=== PATIENT | male | born 1985 | race Caucasian/White ===

== ENCOUNTER 2017-04-08 23:10 | Emergency (ER) | payer OTHER ==
[~2017-04-08] VITALS: Ht 182.9 cm; Wt 72.6 kg
[2017-04-08 23:14] VITALS: BP 141/80
--- NOTE | 2017-04-08 23:30 | NUR ---
AMBULATED TO ER BED 11
--- NOTE | 2017-04-08 23:35 | NUR ---
31/M C/O 6/10 PAIN TO ABSCESS TO RT SIDE OF NECK X 2 DAYS. PT STATES "IT STARTED INGROWN HAIR AND GOT INFECTED". ABSCESS NOTED WITH PURULENT DRAINAGE, EDEMA AND REDNESS LOCALIZED TO SITE. PT REPORTS HE TOOK IBUPROFEN AT 1800. DENIES FEVER/CHILLS, DENIES N/V/D. PMH: TRIGEMINAL NEURALGIA
[2017-04-09] MEDS ORDERED: LIDOCAINE 1% ***ER ONLY *** 10 MG/ML VIAL INJ ONE (00:25)
--- NOTE | 2017-04-09 00:30 | NUR ---
ER MD HURLEY PERFORMING I&D AT BEDSIDE
[2017-04-09 00:45] VITALS: BP 127/72
--- NOTE | 2017-04-09 00:45 | NUR ---
Patient discharged with v/s stable. Written and verbal after care instructions given and explained. Patient alert, oriented and verbalized understanding of instructions. Ambulatory with steady gait. All questions addressed prior to discharge. ID band removed. Patient advised to follow up with PMD. Rx of CLINDAMYCIN HCL 300MG 1 CAPPO 4 TIMES A DAY X 10 DAYS, TRAMADOL HCL 50MG ONE TAB EVERY 6 HOURS PO PRN given. Patient educated on indication of medication including possible reaction and side effects. Opportunity to ask questions provided and answered.
== END 2017-04-09 00:45 | disposition home or self-care (01) ==
LOC: MED 23:10
DX: L02.11 Cutaneous abscess of neck (principal)
CPT/HCPCS: 10060; 99283; J2001

== ENCOUNTER 2017-06-21 02:35 | Emergency (ER) | payer OTHER ==
[~2017-06-21] VITALS: Ht 182.9 cm; Wt 78.9 kg
[2017-06-21 02:45] VITALS: BP 120/93
--- NOTE | 2017-06-21 02:46 | NUR ---
PT TAKEN TO OF
[2017-06-21 02:48] VITALS: BP 120/93
--- NOTE | 2017-06-21 02:50 | NUR ---
PATIENT PRESENTS TO ED WITH C/O LT RIB PAIN X 2WEEKS S/P MEC FALL 10 FEET ON TO WALL-NO LOC/KO, PAIN 5/10 PT DENIES N/V/D; SKIN IS PINK/WARM/DRY; AAOX4 WITH EVEN AND STEADY GAIT; LUNGS CLEAR BL; HR EVEN AND REGULAR; PT DENIES ANY FEVER, CP, SOB, OR COUGH AT THIS TIME; PATIENT STATES PAIN OF 5/10 AT THIS TIME; VSS; PATIENT POSITIONED FOR COMFORT; HOB ELEVATED; BEDRAILS UP X2; BED DOWN. ER MD MADE AWARE OF PT STATUS.
--- NOTE | 2017-06-21 03:11 | NUR ---
PT RETURN FROM CT
--- NOTE | 2017-06-21 04:14 | NUR ---
Patient discharged with v/s stable. Written and verbal after care instructions given and explained. Patient verbalized understanding. Ambulatory with steady gait. All questions addressed prior to discharge. Advised to follow up with PMD. DISCHARGED BY DR MAO
== END 2017-06-21 04:14 | disposition home or self-care (01) ==
LOC: MED 02:35
DX: S20.212A Contusion of left front wall of thorax, initial encounter (principal); W18.30XA Fall on same level, unspecified, initial encounter; Y93.89 Activity, other specified; Y92.89 Other specified places as the place of occurrence of the external cause; Y99.8 Other external cause status
CPT/HCPCS: 71250; 99284

== ENCOUNTER 2017-08-07 21:27 | Emergency (ER) | payer OTHER ==
[~2017-08-07] VITALS: Ht 185.4 cm; Wt 78.0 kg
[2017-08-07 21:34] VITALS: BP 133/94
--- NOTE | 2017-08-08 00:38 | NUR ---
PT AMBULATED TO BED 11
--- NOTE | 2017-08-08 00:55 | NUR ---
PATIENT PRESENTS TO ED W/C/O ABCESS TO R MANDIBLE X 3 DAYS. NO MED HX . PT DENIES N/V/D; SKIN IS PINK/WARM/DRY; AAOX4 WITH EVEN AND STEADY GAIT; LUNGS CLEAR BL; HR EVEN AND REGULAR; PT DENIES ANY FEVER, CP, SOB, OR COUGH AT THIS TIME; PATIENT STATES PAIN OF 10/10 AT THIS TIME; VSS; PATIENT POSITIONED FOR COMFORT; HOB ELEVATED; BEDRAILS UP X2; BED DOWN. ER MD MADE AWARE OF PT STATUS.
--- NOTE | 2017-08-08 01:10 | NUR ---
Patient being evaluated by physician at bedside.
[2017-08-08 02:30] VITALS: BP 128/75
--- NOTE | 2017-08-08 02:30 | NUR ---
Patient discharged with v/s stable. Written and verbal after care instructions given and explained. Patient alert, oriented and verbalized understanding of instructions. Ambulatory with steady gait. All questions addressed prior to discharge. ID band removed. Patient advised to follow up with PMD. Rx of BACTRIM, NAPROSYN, NORCO given. Patient educated on indication of medication including possible reaction and side effects. Opportunity to ask questions provided and answered.
== END 2017-08-08 02:30 | disposition home or self-care (01) ==
LOC: MED 21:27
DX: L03.211 Cellulitis of face (principal)
CPT/HCPCS: 99284

== ENCOUNTER 2018-11-13 01:40 | Emergency (ER) | payer SELFPAY ==
[~2018-11-13] VITALS: Ht 172.7 cm; Wt 81.6 kg
[2018-11-13 01:47] VITALS: BP 114/66
--- NOTE | 2018-11-13 01:47 | NUR ---
33 Y/O MALE PRESENTS TO ED WITH C/O BILAT LOOT EDEMA WITH BILAT FLANK PAIN ON 11/10/18. NO EDEMA OR FLANK PAIN AT THIS TIME. PT STATES DISCOMFORT OF ANKLES OF 2/10 AT THIS TIME. VSS. ER MD AWARE. CONTINUE TO MONITOR.
--- NOTE | 2018-11-13 01:47 | NUR ---
PT TAKEN TO BED 3
--- NOTE | 2018-11-13 01:52 | NUR ---
Dr. Bruner examining patient.
[2018-11-13 02:10] LABS: BASOPHILS % (AUTO) 0.2 % (0.0-2.0); EOSINOPHILS # (AUTO) 0.1 K/uL (0-0.4); EOSINOPHILS % (AUTO) 1.5 % (0.0-4.0); HEMATOCRIT 38.7 % (36-52); HEMOGLOBIN 13.5 g/dL (12.0-18.0); LYMPHOCYTES # (AUTO) 1.2 K/uL (2.0-11.5); LYMPHOCYTES % (AUTO) 26.9 % (20.5-51.1); MEAN CORPUSCULAR HEMOGLOBIN 30 pg (27-31); MEAN CORPUSCULAR HGB CONC 35 g/dL (33-37); MEAN CORPUSCULAR VOLUME 87.3 fL (80-94); MONOCYTES # (AUTO) 0.3 K/uL (0.8-1.0); MONOCYTES % (AUTO) 6.1 % (1.7-9.3); NEUTROPHILS # (AUTO) 2.8 K/uL (1.8-7.7); NEUTROPHILS % (AUTO) 65.3 % (42.2-75.2); PLATELET COUNT (AUTO) 115 K/uL (140-450); RED BLOOD CELL COUNT(AUTO) 4.43 MIL/uL (4.20-6.10); RED CELL DISTRIBUTION WIDTH 12.9 % (11.6-13.7); WHITE BLOOD COUNT (AUTO) 4.4 K/uL (4.8-10.8)
[2018-11-13 02:20] LABS: ANION GAP 12.7 (8-16); CARBON DIOXIDE 27.1 mmol/L (21-32); CREATININE 1.2 mg/dL (0.7-1.3); POTASSIUM 3.8 mmol/L (3.5-5.1)
[2018-11-13 02:26] LABS: ALBUMIN 4.1 g/dL (3.4-5.0); TOTAL BILIRUBIN 0.6 mg/dL (0.0-1.0)
[2018-11-13 03:52] VITALS: BP 98/60
--- NOTE | 2018-11-13 03:53 | NUR ---
DISCHARGE PAPERS GIVEN TO PT. NO EDEMA. NO FLANK PAIN. ALL VSS. INSTRUCTED TO F/U WITH PCP AND WHEN TO RETURN TO ER. PT VERBALLIZED UNDERSTANDING OF DC INSTRUCTIONS. ALL QUESTIONS ANSWERED.
== END 2018-11-13 03:53 | disposition home or self-care (01) ==
LOC: MED 01:40
DX: R22.43 Localized swelling, mass and lump, lower limb, bilateral (principal); M79.661 Pain in right lower leg; M79.662 Pain in left lower leg
CPT/HCPCS: 36415; 80053; 85025; 93970; 99284; Q0092

== ENCOUNTER 2019-01-14 16:37 | Emergency (ER) | payer SELFPAY ==
[~2019-01-14] VITALS: Ht 182.9 cm; Wt 87.2 kg
[2019-01-14 17:28] VITALS: BP 116/71
[2019-01-14] MEDS: HYDROcodone/APAP 5/325 MG 1 TAB TAB PO ONE (18:01)
[2019-01-14 18:52] VITALS: BP 110/65
== END 2019-01-14 18:49 | disposition home or self-care (01) ==
LOC: MED 16:37
DX: S13.4XXA Sprain of ligaments of cervical spine, initial encounter (principal); M25.512 Pain in left shoulder; V49.50XA Passenger injured in collision with unspecified motor vehicles in traffic accident, initial encounter; Y93.89 Activity, other specified; Y92.89 Other specified places as the place of occurrence of the external cause; Y99.8 Other external cause status
CPT/HCPCS: 72040; 99283

== ENCOUNTER 2021-10-26 17:44 | Emergency (ER) | payer MEDICAID, OTHER ==
[~2021-10-26] VITALS: Ht 185.4 cm; Wt 86.9 kg
[2021-10-26 17:50] VITALS: BP 110/72
--- NOTE | 2021-10-26 17:55 | NUR ---
PATIENT AMBULATED TO BED 9.
--- NOTE | 2021-10-26 18:15 | NUR ---
36/M PRESENTS TO ED WITH C/O RIGHT HAND PAIN, STATES HE WAS MOVING FURNITURE THIS MORNING AND FELL ONTO HIS HAND. PATIENT REPORTS TAKING AN ADVIL WITH MILD RELIEF. REPORTS 5/10 PAIN THAT WORSENS WITH MOVEMENT OR USE OF HAND. BRUISING AND SWELLING NOTED TO HAND, ROM LIMITED DUE TO PAIN. NO SIGNS OF OPEN WOUNDS OR BLEEDING, PATIENT DENIES NUMBNESS OR TINGLING, CAP REFILL LESS THAN 2 SECONDS. PATIENT ICING HAND AT THIS TIME.
[2021-10-26] MEDS ORDERED: IBUPROFEN 600 MG TAB PO ONE (18:25)
[2021-10-26] MEDS ORDERED: NAPR-54 PO (19:01)
--- NOTE | 2021-10-26 19:08 | NUR ---
PT PLACED IN RIGHT 4 INCH ORTHOGLASS VOLAR SPLINT WRAPPED WITH 3 INCH DANIELLE WRAPS X 2. CMS WITHIN CMS BEFORE/AFTER. PT TOLERATED SPLINT WELL AND PA NOTIFIED.
[2021-10-26 19:11] VITALS: BP 110/72
--- NOTE | 2021-10-26 19:12 | NUR ---
Patient discharged with v/s stable. Written and verbal after care instructions ABOUT WRIST FRACTURE TREATED WITH IMMOBILIZATION given and explained. Patient alert, oriented and verbalized understanding of instructions. Ambulatory with steady gait. All questions addressed prior to discharge. ID band removed. Patient advised to follow up with PMD. Rx of NAPROSYN given. Patient educated on indication of medication including possible reaction and side effects. Opportunity to ask questions provided and answered.
== END 2021-10-26 19:12 | disposition home or self-care (01) ==
LOC: MED 17:44
DX: S62.154A Nondisplaced fracture of hook process of hamate [unciform] bone, right wrist, initial encounter for closed fracture (principal); W19.XXXA Unspecified fall, initial encounter; Y93.89 Activity, other specified; Y92.89 Other specified places as the place of occurrence of the external cause; Y99.8 Other external cause status
CPT/HCPCS: 73130; 99283